=== PATIENT | female | born 1990 | race American Indian/Alaskan Native ===

== ENCOUNTER 2017-09-10 17:14 | Emergency (ER) | payer SELFPAY ==
[2017-09-10 18:38] VITALS: BP 124/75
[2017-09-10 19:00] LABS: Bilirubin,Urine NEG (Negative); Blood,Urine NEG (Negative); Color,Urine Yellow (Yellow); Mucus,Urine 3+ /HPF; Nitrite,Urine NEG (Negative); Protein,Urine <15 mg/dL mg/dL (Negative)
[2017-09-10 19:17] LABS: HCG Qualitative,Urine Negative (Negative)
== END 2017-09-10 22:52 | disposition left against medical advice (07) ==
LOC: ED 17:14
DX: Z53.21 Procedure and treatment not carried out due to patient leaving prior to being seen by health care provider (principal)
CPT/HCPCS: 81001; 81025